=== PATIENT | female | born 1960 | race Caucasian/White ===

== ENCOUNTER 2017-05-14 05:07 | Day surgery (SDC) | payer BC ==
[2017-05-09 14:35] LABS: BASOPHILS 0.3 % (0-2); EOSINOPHILS 1.6 % (0-7); HEMATOCRIT 42.3 % (36.0-48.0); HEMOGLOBIN 14.3 g/dL (12-16); IMMATURE GRANULOCYTES 0.2 % (0-5); LYMPHOCYTES 42.5 % (15-50); MCH 30.8 pg (26.0-34.0); MCHC 33.8 g/dL (31.0-37.0); MCV 91.2 fL (80.0-100.0); MEAN PLATELET VOLUME 9.7 fL (7.4-10.4); MONOCYTES 6.4 % (2-11); PLATELET COUNT 224 10x3/uL (130-400); RBC 4.64 10x6/uL (4.00-5.40); RDW 11.6 % (11.5-14.5); WBC 6.4 10x3/uL (4.8-10.8)
[~2017-05-14] VITALS: Ht 160 cm; Wt 88.9 kg
[~2017-05-14 05:07] MED LIST: COZAAR50 MG PO; ZANAFLEX4 MG PO
[2017-05-14] MEDS ORDERED: BAYER CHEWABLE81 MG PO (08:59)
[2017-05-14 09:06] VITALS: BP 122/72; Ht 160 cm; Wt 88.9 kg
[2017-05-14 09:32] LABS: HCG URINE NEGATIVE (NEGATIVE)
--- NOTE | 2017-05-14 12:52 | HP ---
PATIENT: ANNMARIE MORRIS MEDICAL RECORD: [id number] ACCOUNT: [id number] LOCATION:[facility] : 64 ADMISSION DATE: 05/14/17 HISTORY AND PHYSICAL EXAMINATION HISTORY OF PRESENT ILLNESS: The patient is a 57-year-old 3, para 2, AB 1 white female with postmenopausal bleeding and an ultrasound revealing abnormal finding, possible endometrial polyp, needs further evaluation. MEDICAL HISTORY: DRUG ALLERGIES: ERYTHROMYCIN, SULFA, FENTANYL, AND PENICILLIN. CURRENT MEDICATIONS: Include loratadine, losartan, low dose aspirin, Meloxicam, multivitamin, and tizanidine. MEDICAL PROBLEMS: Hypertension. FAMILY HISTORY: Noncontributory. PREVIOUS SURGERY: None other than D&C and wrist fracture repair. HABITS: Nonsmoker. PHYSICAL EXAMINATION: GENERAL: Well-developed, well-nourished female in no distress with blood pressure of 140/90. HEENT: Unremarkable. LUNGS: Clear. HEART: Regular rate and rhythm. ABDOMEN AND PELVIC: Current and deferred for anesthesia. EXTREMITIES: No cyanosis, clubbing or edema. NEUROLOGIC: Grossly intact. IMPRESSION: Postmenopausal bleeding. Ultrasound revealing possible endometrial polyp. PLAN: Examination under anesthesia with endocervical curettage, hysteroscopy, polypectomy, endometrial curettage, all indicated procedures. I have discussed with the patient planned procedure and potential complications including anesthesia, infection, bleeding, perforation of the uterus, injury to other organs. All questions were answered. TRANSINT:[id number] Voice Confirmation ID: [id number] DOCUMENT ID: [id number] MARÍA ELENA BEAULIEU MD at 1252 CC: [id number] DICTATION DATE: 05/13/17 1307 [place] REFINISHER: 05/13/17 1336 [facility] [address] [place] [address]
--- NOTE | 2017-05-14 16:40 | NUR ---
1500--PT VOIDS, IV DC'D. ROLDAN THIBODEAUX 6135--DISCHARGE INSTRUCTIONS GIVEN, PT VERBALIZES UNDERSTANDING. PT OFF UNIT VIA WC. ROLDAN THIBODEAUX
== END 2017-05-14 15:30 | disposition home or self-care (01) ==
LOC: D.OPS 05:07 → D.PAN 11:45 → D.OPS 15:30
PROVIDERS: Obstetrics & Gynecology
DX: N95.0 Postmenopausal bleeding (principal); N84.0 Polyp of corpus uteri; I10 Essential (primary) hypertension; Z79.82 Long term (current) use of aspirin; Z79.1 Long term (current) use of non-steroidal anti-inflammatories (NSAID); Z79.899 Other long term (current) drug therapy; Z88.1 Allergy status to other antibiotic agents; Z88.0 Allergy status to penicillin; Z88.2 Allergy status to sulfonamides; Z88.8 Allergy status to other drugs, medicaments and biological substances; Z01.812 Encounter for preprocedural laboratory examination

== ENCOUNTER → 2018-04-28 16:58 | Outpatient (CLI) | payer BC ==
[2017-05-14 09:06] VITALS: BMI 34.8
[~2018-04-28 16:58] MED LIST changes: +BAYER CHEWABLE81 MG PO
== END | disposition home or self-care (01) ==
LOC: D.MAMMO 16:00
DX: Z12.31 Encounter for screening mammogram for malignant neoplasm of breast (principal)

== ENCOUNTER → 2019-06-01 15:30 | Outpatient (CLI) | payer BC ==
[2017-05-14 09:06] VITALS: BMI 34.8
== END | disposition home or self-care (01) ==
LOC: D.MAMMO 15:00
PROVIDERS: ATTEND Family Medicine
DX: Z12.31 Encounter for screening mammogram for malignant neoplasm of breast (principal)

== ENCOUNTER 2019-07-14 09:00 | Outpatient (CLI) | payer BC ==
[2017-05-14 09:06] VITALS: BMI 34.8
== END 2019-07-14 10:00 | disposition home or self-care (01) ==
LOC: D.MAMMO 09:00
PROVIDERS: ATTEND Family Medicine
DX: R92.8 Other abnormal and inconclusive findings on diagnostic imaging of breast (principal)

== ENCOUNTER 2020-01-16 03:12 | Emergency (ER) | payer BC ==
[~2020-01-16] VITALS: Ht 160 cm; Wt 90.9 kg
[2020-01-16] MEDS ORDERED: VOLTAREN100 GM TOPICAL (03:17)
[2020-01-16 03:18] VITALS: Ht 160 cm; Wt 90.9 kg
[2020-01-16 03:44] VITALS: BP 136/72
== END 2020-01-16 03:44 | disposition home or self-care (01) ==
LOC: D.ER 03:12
DX: M62.838 Other muscle spasm (principal); I10 Essential (primary) hypertension